=== PATIENT | female | born 2000 | race Two or more races ===

== ENCOUNTER 2024-07-11 14:02 | Emergency (ER) | payer MEDICAID, SELFPAY ==
[2024-07-11 14:03] VITALS: BMI 43.8
[2024-07-11 14:33] VITALS: BP 94/62; PULSE 112; RESP 18; TEMP 37.9; O2SAT 98
--- NOTE | 2024-07-11 14:50 | EDNOTE_ITS ---
Upper Respiratory Inf. RME/HPI General Chief Complaint: Flu Like Symptoms Stated Complaint: FLU SYMPTOMS FOR 4 DAYS Time Seen by Provider: 07/11/24 14:38 Source: patient Arrival date/time: 07/11/24 14:02 This is a 23-year-old female presents to the emergency department with complaints of generalized bodyaches, fever sore throat for 4 days. Patient reports she has had intermittent fevers in which she has been taking Tylenol ibuprofen for her fever control. Denies chest pain, dyspnea no headache or neck pain. Mode of arrival: ambulatory Related Data Home Medications ?Medication ?Instructions ?Recorded ?Confirmed prenat.vits,stefan,[id number] 1 tab PO QDAY 05/03/20 05/03/20 albuterol sulfate 90 mcg/actuation 2 puff inhalation PRN PRN 06/16/20 06/16/20 aerosol inhaler Shortness Of Breath Or Wheezing folic acid 1 mg tablet 06/16/20 Previous Rx's ?Medication ?Instructions ?Recorded cephalexin 750 mg capsule (Keflex) 750 mg PO Q12H #14 caps 05/05/21 oxycodone-acetaminophen 5 mg-325 1 tab PO TID PRN pain #14 tabs 05/05/21 mg tablet (Percocet) cephalexin 500 mg capsule 500 mg PO TID #21 caps 04/16/23 ibuprofen 800 mg tablet 800 mg PO TID PRN pain #30 tabs 04/16/23 penicillin V potassium 500 mg 500 mg PO BID 10 days #20 tabs 07/11/24 tablet Allergies Allergy/AdvReac Type Severity Reaction Status Date / Time No Known Allergies Allergy Verified 07/11/24 14:06 Review of Systems Review of Systems Systems Reviewed: All systems reviewed, normal except as documented Narrative Review of Systems: Gen: +fever, no chills, no weight loss, bodyaches EYES: No discharge, no visual changes, no pain HEENT: No ear pain, no congestion, no sore throat PULM: No shortness of breath, no cough, no congestion CV: No chest pain, no dyspnea on exertion, no palpitations GI: No nausea, no vomiting, no diarrhea, no pain, no constipation : No frequency, no urgency,? no dysuria Musc/skel: No joint pain, no back pain Skin: No rash? ED Exam Narrative Physical exam: General: Sittiing in Exam table in no acute distress, answering questions appropriately HENT: normocephalic, atraumatic, EOMI, PERRLA, moist mucous membranes Chest: chest wall is nontender Cardiac: regular rate and rhythm, normal S1 and S2, no murmurs, rubs, or gallops, capillary refill ?2 seconds Pulmonary: clear to auscultation bilaterally, no wheezing, crackles, or rhonchi Abdominal: active bowel sounds, soft, nontender, nondistended Neuro: A&OX3, CN II-XII intact, sensation grossly intact bilaterally in UE and LE. Skin: no rashes, no ecchymosis Ext: no lower extremity edema Course Quality Measures none Orders Category Date Time Status Bedside COVID-19 Antigen Test NOW Care 07/11/24 14:49 Completed Bedside Influenza A&B Antigen Test NOW Care 07/11/24 14:49 Completed Strep A Rapid Stat Lab 07/11/24 14:51 Completed Ibuprofen Tab [Motrin Tab] Med 07/11/24 14:49 Discontinued 800 mg PO X1 ONE Vital Signs Vital signs: Vital Signs Temperature 100.3 F 07/11/24 14:33 Pulse Rate 112 H 07/11/24 14:33 Respiratory Rate 18 07/11/24 14:33 Blood Pressure 94/62 07/11/24 14:33 Pulse Oximetry (%) 98 07/11/24 14:33 Oxygen Delivery Method Room Air 07/11/24 14:33 Upper Respiratory Infection MDM Narrative MDM Narrative:: 23-year-old female awake and alert appears to have influenza symptoms, however did swab her for strep which was positive. I will treat her with antibiotics and she can follow-up with her PCP. Patient education provided, and that the antibiotics are prescribed to avoid serious complications, including rheumatic fever. Advised to take OTC NSAID prn pain or fevers. Fluids, soups, tea, honey advised. Use humidifier at nights. Replace toothbrush. Follow up if symptoms persist / worsen over next 2-3 days. ER precautions provided. Pt verbalized understanding. Patient data External records reviewed:: [facility] [place] previous records Clinical information provided by:: patient Social determinants that could affect healthcare access:: none Patient has the following chronic illnesses:: no How is presenting disease/condition affected by chronic disease/condition?: no c hronic disease Evaluation data The following diagnostics were reviewed and interpreted by me:: lab results Lab and/or radiology exams considered but not ordered:: no Interpretation Summary: + Strep pharyngitis, and influenza. Medications / Prescriptions Medications or Prescriptions considered but not ordered:: no Medication administrations:: Medication Administration History Discontinued Medications Ibuprofen (Ibuprofen Tab 400 Mg Tablet) 800 mg PO X1 ONE Stop: 07/11/24 14:50 Last Admin: 07/11/24 14:56 Dose: 800 mg Documented By: All medications administered and effective Consultations Consultation(s) initiated? (list below): No Diagnosis Upper Respiratory Differential Diagnosis: upper respiratory infection, sinusitis, bronchitis, influenza and pharyngitis Most likely diagnosis given after review of the tests above:: Strep pharyngitis Admission Indicated Admission indicated?: not indicated Admission Request Was there a request for admission?: No Disposition Plan Disposition Plan: Discharge Discharge Attestation Discharge Attestation: The patient and all family members were given an opportunity to ask questions and understood the discharge instructions. Discharge instructions specifically effects, indications for sooner follow up or return to the emergency department, and the expected course of current diagnosis. Patient condition: Stable Discharge Plan Plan Patient Disposition: HOME (Self Care) Patient condition on transfer: Stable Prescriptions/Referrals Prescriptions/Med Rec: New penicillin V potassium 500 mg tablet 500 mg PO BID 10 Days Qty: 20 0RF No Action folic acid 1 mg tablet albuterol sulfate 90 mcg/actuation HFA aerosol inhaler 2 puff INHALATION PRN PRN (Reason: Shortness Of Breath Or Wheezing) cephalexin [Keflex] 750 mg capsule 750 mg PO Q12H Qty: 14 0RF oxycodone-acetaminophen [Percocet] 5-325 mg tablet 1 tab PO TID MDD 4 PRN (Reason: pain) Qty: 14 0RF prenat.vits,stefan,[id number] Tablet 1 tab PO QDAY cephalexin 500 mg capsule 500 mg PO TID Qty: 21 0RF ibuprofen 800 mg tablet 800 mg PO TID PRN (Reason: pain) Qty: 30 0RF Referrals: Tereza Skelton FNP [Primary Care Provider] - In 1 week Problem List Clinical Impression: Pharyngitis Patient/Caregiver Discharge Instructions Discharge Activity: activity as tolerated Education Materials: ED Pharyngitis, Strep (Confirmed) Additional Instructions: Your strep test was positive here in the emergency room. Please start antibiotics as directed. Please increase fluids, can start soups, tea, honey advised. Use humidifier at nights. Replace toothbrush. Follow up if symptoms persist / worsen over next 2-3 days with your primary care or clinic. Please return to the emergency department this any worsening symptoms or change in condition. Print Language: Armenian Stand Alone Forms: Marivel Award Info., Work/School Release, Patient Portal Info Letter PA/COMMUNITY HEALTH ADVISOR Supervising Physician PA/RASHEED Supervising Physician: dr Bernardo
[2024-07-11] MEDS: IBUPROFEN TAB 400 MG TABLET 800 MG PO (14:56)
[2024-07-11 15:04] LABS: Strep A Rapid Positive (Negative)
== END 2024-07-11 16:14 | disposition home or self-care (01) ==
PROVIDERS: Nurse Practitioner Primary Care; Emergency Provider Emergency Medicine; PCP Nurse Practitioner
DX: J02.9 Acute pharyngitis, unspecified (principal)
CPT/HCPCS: 87400; 87651; 87811; 99283; A9270

== ENCOUNTER 2025-01-21 21:09 | Emergency (ER) | payer MEDICAID, SELFPAY ==
[2025-01-21 21:11] VITALS: BMI 46.5
[2025-01-21 21:27] VITALS: BP 131/87; PULSE 81; RESP 18; TEMP 36.7; O2SAT 98
--- NOTE | 2025-01-21 21:47 | PD.EDADULT ---
ED General RME/HPI General Chief complaint: General Adult/Misc Complain Stated complaint: BLOOD IN STOOL Time Seen by Provider: 01/21/25 21:17 Arrival date/time: 01/21/25 21:09 RME / HPI RME / HPI narrative: 24-year-old female patient came in for evaluation regarding bright red blood in the stool. Onset of symptoms since early this morning as brightly blood in the stool, described as mixed in the stool. Patient denies any diarrhea or constipation. Patient's been having epigastric pain for the last few days, comes and goes, severity moderate. Denies any vomiting blood denies any fever. Patient is taking blood thinner. Denies any rectal pain. Denies any other complaints. Related Data Home Medications ?Medication ?Instructions ?Recorded ?Confirmed prenat.vits,stefan,[id number] 1 tab PO QDAY 05/03/20 05/03/20 albuterol sulfate 90 mcg/actuation 2 puff inhalation PRN PRN 06/16/20 06/16/20 aerosol inhaler Shortness Of Breath Or Wheezing folic acid 1 mg tablet 06/16/20 Previous Rx's ?Medication ?Instructions ?Recorded cephalexin 750 mg capsule (Keflex) 750 mg PO Q12H #14 caps 05/05/21 oxycodone-acetaminophen 5 mg-325 1 tab PO TID PRN pain #14 tabs 05/05/21 mg tablet (Percocet) cephalexin 500 mg capsule 500 mg PO TID #21 caps 04/16/23 ibuprofen 800 mg tablet 800 mg PO TID PRN pain #30 tabs 04/16/23 Allergies Allergy/AdvReac Type Severity Reaction Status Date / Time No Known Allergies Allergy Verified 01/21/25 21:10 Review of Systems Review of Systems Narrative Review of Systems: Review of system reviewed and within normal limits except mentioned in HPI ED Exam Narrative Physical exam: VITAL SIGNS: Reviewed. GENERAL APPEARANCE: Alert and interactive, follows commands, no acute distress, HEAD AND FACE: Non-traumatic. ENT: PERRL, pink conjunctivitis, eyelid no trauma, Mucous membrane moist. NECK: Supple, nontender, no nuchal rigidity. CHEST: No tenderness, no crepitus, no paradoxical movement, no retractions. LUNGS: Clear, well ventilated, symmetric, no rales, no wheezing, no ronchi, no stridor, good breath sounds bilaterally. HEART: Regular rate, regular rhythm, no murmur, no gallops. ABDOMEN: Soft, positive bowel sounds, nondistended, no guarding, epigastric tenderness, no rebound, no masses, RECTAL: Deferred. GENITAL: Deferred. NEUROLOGICAL: Gross motor function intact sensory function intact, Appropriate for age. MUSCULOSKELETAL: low back nontender, full range of motion. EXTREMITIES: Nontender, full range of motion. SKIN: Color pink, dry, no rash, no lacerations, no abrasions, no contusions. LYMPHATICS: Deferred. Course Vital Signs Vital signs: Vital Signs Temperature 98.1 F 01/21/25 21: Pulse Rate 81 01/21/25 21: Respiratory Rate 18 01/21/25 21: Blood Pressure 131/87 H 01/21/25 21: Pulse Oximetry (%) 98 01/21/25 21:27 Oxygen Delivery Method Room Air 01/21/25 21:27 Discharge Plan Prescriptions/Referrals Prescriptions/Med Rec: No Action folic acid 1 mg tablet albuterol sulfate 90 mcg/actuation HFA aerosol inhaler 2 puff INHALATION PRN PRN (Reason: Shortness Of Breath Or Wheezing) cephalexin [Keflex] 750 mg capsule 750 mg PO Q12H Qty: 14 0RF oxycodone-acetaminophen [Percocet] 5-325 mg tablet 1 tab PO TID MDD 4 PRN (Reason: pain) Qty: 14 0RF prenat.vits,stefan,[id number] Tablet 1 tab PO QDAY cephalexin 500 mg capsule 500 mg PO TID Qty: 21 0RF ibuprofen 800 mg tablet 800 mg PO TID PRN (Reason: pain) Qty: 30 0RF Patient/Caregiver Discharge Instructions Print Language: Hebrew MDM Narrative MDM hospital course: 24-year-old female patient came in for evaluation regarding bright red blood in the stool. Onset of symptoms since early this morning as brightly blood in the stool, described as mixed in the stool. Patient denies any diarrhea or constipation. Patient's been having epigastric pain for the last few days, comes and goes, severity moderate. Denies any vomiting blood denies any fever. Patient is taking blood thinner. Denies any rectal pain. Denies any other complaints.
--- NOTE | 2025-01-21 21:49 | XR_ITS ---
Examination: Abdomen sonogram, Limited Date and time of exam: January 21, 2025 10:21 PM INDICATIONS: Right upper abdominal pain beginning 2 days ago Technique: Real-time arteaga scale transabdominal sonographic images of the upper abdomen obtained. Findings: Negative for gallstones Gallbladder wall is not thickened, common bile duct 0.45 cm no stones Common bile duct: 4.5 cm Pancreas obscured by bowel gas Liver 15.4 cm no focal liver lesions Normal hepatopedal portal venous flow Date and IVC IMPRESSION: Contracted gallbladder, negative for cholelithiasis, negative for cholecystitis
[2025-01-21 22:25] LABS: Basophils # (Auto) 0.1 Thou/mm3 (0.0-0.2); Basophils % (Auto) 1 % (0-2.5); Eosinophils # (Auto) 0.2 Thou/mm3 (0.0-0.5); Eosinophils % (Auto) 2 % (0-10); Hematocrit 36.1 % (36.0-46.0); Hemoglobin 11.4 g/dL (12.0-16.0); Immature Granulocytes Auto 0.03 Thou/mm3 (0.00-0.00); Lymphocytes # (Auto) 2.9 Thou/mm3 (1.0-4.8); Lymphocytes % (Auto) 35 % (10-50); Mean Corpuscular HGB Conc 31.6 g/dl (31.0-37.0); Mean Corpuscular Hemoglobin 25.6 pg (25.0-35.0); Mean Corpuscular Volume 81 fL (80-100); Monocytes # (Auto) 0.5 Thou/mm3 (0.0-0.8); Monocytes % (Auto) 6 % (0-12); Neutrophils # (Auto) 4.7 Thou/mm3 (1.8-7.7); Neutrophils % (Auto) 56 % (37-80); Nucleated Red Blood Cell # 0.00 Thou/mm3 (0.00-0.00); Nucleated Red Blood Cell % 0 /100 WBC (0); Platelet Count 264 Thou/mm3 (140-440); RDW Standard Deviation 47.7 fL (36.4-46.3); Red Blood Count 4.45 Miln/mm3 (4.00-5.20); White Blood Count 8.3 Thou/mm3 (3.6-11.0)
[2025-01-21 22:51] LABS: INR 1.0 (0.9-1.3); Prothrombin Time 10.8 Seconds (9.0-12.2)
--- NOTE | 2025-01-21 22:54 | EDRME_ITS ---
Rapid Medical Screening Exam [facility] Arrival date/time: 01/21/25 21:09 24-year-old female patient came in for evaluation regarding bright red blood in the stool. Onset of symptoms since early this morning as brightly blood in the stool, described as mixed in the stool. Patient denies any diarrhea or co nstipation. Patient's been having epigastric pain for the last few days, comes and goes, severity moderate. Denies any vomiting blood denies any fever. Patient is taking blood thinner. Denies any rectal pain. Denies any other complaints. Chief Complaint: General Adult/Misc Complain Time Seen by Provider: 01/21/25 21:17 Vital signs: Vital Signs Temperature 98.1 F 01/21/25 21:27 Pulse Rate 81 01/21/25 21:27 Respiratory Rate 18 01/21/25 21:27 Blood Pressure 131/87 H 01/21/25 21:27 Pulse Oximetry (%) 98 01/21/25 21:27 Oxygen Delivery Method Room Air 01/21/25 21:27 [facility] Narrative: 24-year-old female patient came in for evaluation regarding bright red blood in the stool. Onset of symptoms since early this morning as brightly blood in the stool, described as mixed in the stool. Patient denies any diarrhea or constipation. Patient's been having epigastric pain for the last few days, comes and goes, severity moderate. Denies any vomiting blood denies any fever. Patient is taking blood thinner. Denies any rectal pain. Denies any other c omplaints.
[2025-01-21 23:02] LABS: Collection Type, Urine Clean Catch
[2025-01-21 23:10] LABS: Bilirubin,Urine Negative (Negative); Blood,Urine Negative (Negative); Clarity,Urine Turbid (Clear/Hazy); Color,Urine Yellow (Lt Yel-Yel); Culture Indicated,Urine Contaminated; Glucose, Urine Negative (Negative); Ketones,Urine Trace (Negative); Leukocyte Esterase,Urine Positive (Negative); Nitrite,Urine Negative (Negative); PH,Urine 6.0 (5.0-7.0); Protein,Urine Trace (Neg - Trace); RBC,Urine 26 /hpf (0-3); Specific Gravity,Urine 1.031 (1.001-1.035); Squamous Epithelial Cell,Urine 28 /hpf (0-5); Urobilinogen,Urine Negative mg/dL (0.0-1.0); WBC,Urine 66 /hpf (0-5)
[2025-01-21 23:10] LABS: Alanine Aminotransferase 7 U/L (10-49); Albumin, Serum 4.2 gm/dL (3.5-5.0); Albumin/Globulin Ratio 1.7 (1.2-2.2); Alkaline Phosphatase 54 U/L (46-116); Anion Gap 9 (7-16); Aspartate Amino Transferase 17 U/L (0-34); BUN/Creatinine Ratio 11 Ratio (12-20); Bilirubin,Total 0.3 mg/dL (0.3-1.2); Blood Urea Nitrogen 11 mg/dL (9-23); Calcium 9.3 mg/dL (8.3-10.6); Calcium (Corrected) 9.3 mg/dL (8.5-10.1); Carbon Dioxide 28.6 mMol/L (20.0-31.0); Chloride 106 mMol/L (98-107); Creatinine (Component) 1.0 mg/dL (0.6-1.3); Estimated Creatinine Clearance 92.7 mL/min (>60); Globulin 2.5 gm/dL (2.3-3.5); Glucose 77 mg/dL (74-106); Lipase 43 U/L (12-53); Osmolality,Calculated 285 (275-295); Potassium 3.8 mMol/L (3.4-5.1); Sodium 144 mMol/L (136-145); Total Protein 6.7 gm/dL (5.7-8.2); eGFR > 60 See Note
[2025-01-21 23:12] LABS: HCG Qualitative,Urine Negative
[2025-01-21 23:35] VITALS: BP 117/90; PULSE 80; RESP 17; TEMP 36.3; O2SAT 100
--- NOTE | 2025-01-22 00:24 | PD.EDABDPN ---
ED Abdominal Pain RME/HPI General Chief Complaint: General Adult/Misc Complain Stated complaint: BLOOD IN STOOL Time seen by provider: 01/21/25 21:17 Arrival date/time: 01/21/25 21:09 RME / HPI RME / HPI narrative: 24-year-old female patient came in for evaluation regarding bright red blood in the stool. Onset of symptoms since early this morning as brightly blood in the stool, described as mixed in the stool. Patient denies any diarrhea or constipation. Patient's been having epigastric pain for the last few days, comes and goes, severity moderate. Denies any vomiting blood denies any fever. Patient is taking blood thinner. Denies any rectal pain. Denies any other complaints. DR. VALLECILLO MAIN ED EVALUATION: 24 y/o female with Hx of Anemia presents to ED c/o intermittent epigastric abdominal pain x 3 days and bright red blood in the stool x 2 days. Patient's LMP was approximately 1 week ago. Denies vomiting and constipation. Denies any chance of but has 2 children close in age. Patient is not on a blood thinner. Denies family history of Crohn's disease and IBS. No other cocnerns or complaints expressed at this time. Related Data Home Medications ?Medication ?Instructions ?Recorded ?Confirmed prenat.vits,stefan,[id number] 1 tab PO QDAY 05/03/20 05/03/20 albuterol sulfate 90 mcg/actuation 2 puff inhalation PRN PRN 06/16/20 06/16/20 aerosol inhaler Shortness Of Breath Or Wheezing folic acid 1 mg tablet 06/16/20 Previous Rx's ?Medication ?Instructions ?Recorded cephalexin 750 mg capsule (Keflex) 750 mg PO Q12H #14 caps 05/05/21 oxycodone-acetaminophen 5 mg-325 1 tab PO TID PRN pain #14 tabs 05/05/21 mg tablet (Percocet) cephalexin 500 mg capsule 500 mg PO TID #21 caps 04/16/23 ibuprofen 800 mg tablet 800 mg PO TID PRN pain #30 tabs 04/16/23 Allergies Allergy/AdvReac Type Severity Reaction Status Date / Time No Known Allergies Allergy Verified 01/21/25 21:10 Review of Systems Review of Systems Systems Reviewed: All systems reviewed, normal except as documented Past Medical History Past Medical History RESPIRATORY: Positive Pneumonia HEMATOLOGIC: Positive Anemia Family History FAMILY HISTORY: Positive Family Cardiac Disorders (MOTHER-HTN.) and Family Surgery (AUNT HEART SURGERY) ED Exam Narrative Physical exam: Generally patient is alert oriented x 3 in no obvious distress, heart is regular rate and rhythm, lungs clear to auscultation equal bilaterally abdomen soft bowel sounds present nondistended nontender benign exam. Course Quality Measures none Orders Category Date Time Status US gall bladder Stat Exams 01/21/25 21:49 Completed CBC Stat Lab 01/21/25 22:08 Completed Comprehensive Metabolic Panel Stat Lab 01/21/25 22:08 Completed HCG Qualitative,Urine Stat Lab 01/21/25 22:46 Completed Lipase Stat Lab 01/21/25 22:08 Completed Prothrombin Time with INR Stat Lab 01/21/25 22:08 Completed UA, C/S IF [Urinalysis, C/S if Indicated] Stat Lab 01/21/25 22:46 Completed Vital Signs Vital signs: Vital Signs Temperature 98.1 F 01/21/25 21:27 Pulse Rate 81 01/21/25 21:27 Respiratory Rate 18 01/21/25 21:27 Blood Pressure 131/87 H 01/21/25 21:27 Pulse Oximetry (%) 98 01/21/25 21:27 Oxygen Delivery Method Room Air 01/21/25 21:27 Abdominal Pain MDM MDM Narrative MDM Narrative:: Scribe Attestation: I, Debora Shah am scribing for and in the presence of Dr. Vallecillo. Provider Notation: Although this document has been carefully reviewed, there may still be some phonetic and other typographical errors.? These errors are purely grammatical due to imperfections in the software program and should not be construed in any way to? compromise the substance of the patient's medical care during this visit. I interpreted all labs. BUN is not elevated. Patient's hemoglobin is 11. Patient is not thrombocytopenic. Patient's abdominal exam was benign. I do not believe she needs a CAT scan of the abdomen and pelvis. If bleeding persist she needs to follow-up with the regular doctor for GI referral. Return to ER as needed or if condition worsens. Patient data External records reviewed:: [facility] previous records (Reviewed prior ED records from 07/11/24. Patient was seen for Pharyngitis.) Clinical information provided by:: patient Social determinants that could affect healthcare access:: none Patient has the following chronic illnesses:: Anemia How is presenting disease/condition affected by chronic disease/condition?: exacerbated by Evaluation data The following diagnostics were reviewed and interpreted by me:: lab results and radiology exam(s) Lab and/or radiology exams considered but not ordered:: None Interpretation Summary: RADIOLOGY Gall Bladder US: Findings: Negative for gallstones Gallbladder wall is not thickened, common bile duct 0.45 cm no stones Common bile duct: 4.5 cm Pancreas obscured by bowel gas Liver 15.4 cm no focal liver lesions Normal hepatopedal portal venous flow Date and IVC IMPRESSION: Contracted gallbladder, negative for cholelithiasis, negative for cholecystitis Medications / Prescriptions Medications or Prescriptions considered but not ordered:: None Medication administrations:: See above if any. Consultations Consultation(s) initiated? (list below): No Diagnosis Differential diagnosis abdominal pain: abdominal pain, diverticulitis, endometriosis, gastroenteritis, pancreatitis and other (Hemorrhoids) Most likely diagnosis given after review of the tests above:: Lower GI bleed Admission Indicated Admission indicated?: not indicated Explain why admission is indicated or not indicated:: Patient does not meet admission criteria. Admission Request Was there a request for admission?: No Disposition Plan Disposition Plan: Discharge Discharge Attestation Discharge Attestation: The patient and all family members were given an opportunity to ask questions and understood the discharge instructions. Discharge instructions specifically effects, indications for sooner follow up or return to the emergency department, and the expected course of current diagnosis. Patient condition: Stable Discharge Plan Plan Patient Disposition: HOME (Self Care) Prescriptions/Referrals Prescriptions/Med Rec: No Action folic acid 1 mg tablet albuterol sulfate 90 mcg/actuation HFA aerosol inhaler 2 puff INHALATION PRN PRN (Reason: Shortness Of Breath Or Wheezing) cephalexin [Keflex] 750 mg capsule 750 mg PO Q12H Qty: 14 0RF oxycodone-acetaminophen [Percocet] 5-325 mg tablet 1 tab PO TID MDD 4 PRN (Reason: pain) Qty: 14 0RF prenat.vits,stefan,[id number] Tablet 1 tab PO QDAY cephalexin 500 mg capsule 500 mg PO TID Qty: 21 0RF ibuprofen 800 mg tablet 800 mg PO TID PRN (Reason: pain) Qty: 30 0RF Referrals: No Primary/Family,Physician [Primary Care Provider] - In 1 week Problem List Clinical Impression: Lower GI bleed Patient/Caregiver Discharge Instructions Additional Instructions: If bleeding worsens you need to follow-up with your doctor for GI referral. Return to ER as needed or if condition worsens. Print Language: Canadian Stand Alone Forms: Marivel Award Info., Patient Portal Info Letter
[2025-01-22 01:25] VITALS: BP 117/90; PULSE 76; RESP 17; O2SAT 100
== END 2025-01-22 01:25 | disposition home or self-care (01) ==
PROVIDERS: Nurse Practitioner Family; Emergency Provider Emergency Medicine
DX: K92.2 Gastrointestinal hemorrhage, unspecified (principal); K82.0 Obstruction of gallbladder
CPT/HCPCS: 36415; 76705; 80053; 81001; 81025; 83690; 85025; 85610; 99283